=== PATIENT | female | born 1975 | race Caucasian/White ===

== ENCOUNTER 2019-01-13 22:14 | Emergency (ER) | payer BC ==
[2019-01-13] MEDS ORDERED: MECLIZINE HCL 12.5 MG TAB PO ONE (23:06)
[2019-01-13] MEDS ORDERED: AMOXICILLIN TRIHYDRATE 875 MG TAB PO ONE (23:06)
[2019-01-13] MEDS ORDERED: HYDROcodone 5MG/APAP 325MG 1 EA TAB PO ONE (23:07)
--- NOTE | 2019-01-13 23:11 | ED.PDOC ---
History of Present Illness - General Chief Complaint: ENT Problem Time Seen by Provider: 01/13/19 23:06 Source: patient - History of Present Illness Initial Comments: Pt dove into hopper and felt a pop in R ear and was immediately dizzy. Has muffled hearing and vague pain on R. denies bleeding from ear Timing/Duration: abrupt Severity: severe EENT Location: ear (R) Prearrival Treatment: no prearrival treatment Improving Factors: nothing Worsening Factors: nothing Associated Symptoms: change in hearing Home Medications: Ambulatory Orders Amoxicillin 875 mg PO BID #10 tab 01/13/19 Meclizine HCl [Meclizine 25] 25 mg PO TID PRN #15 tab 01/13/19 Review of Systems - Review of Systems Constitutional: States: no symptoms reported EENTM: States: ear pain. Denies: blurred vision, nose pain, nose congestion, throat swelling Respiratory: States: no symptoms reported Cardiology: States: no symptoms reported Neurological: States: no symptoms reported Physical Exam - Physical Exam General Appearance: Alert, Anxious Eye Exam: bilateral normal, bilateral other - lateral nystagmus to L gaze Ear Exam: right ear: TM bulging - bloody effusion, erythema, bilateral ear: auricle normal, canal normal Nasal Exam: normal inspection Throat Exam: normal mouth inspection, pharynx normal, dental tenderness Departure - Departure Clinical Impression: Otic barotrauma Qualifiers: Encounter type: initial encounter Qualified Code(s): T70.0XXA - Otitic barotrauma, initial encounter Disposition: Discharge to Home or Self Care Departure Forms: ED Discharge - Pt. Copy, Patient Portal Self Enrollment Instructions: DI for Ear Pain-Adult Prescriptions: Amoxicillin 875 mg PO BID #10 tab Meclizine HCl [Meclizine 25] 25 mg PO TID PRN #15 tab PRN Reason: Dizziness Home Medications: Ambulatory Orders Amoxicillin 875 mg PO BID #10 tab 01/13/19 Meclizine HCl [Meclizine 25] 25 mg PO TID PRN #15 tab 01/13/19
[2019-01-13 23:25] VITALS: BP 149/97; TEMP 98.1; O2SAT 100
== END 2019-01-13 23:25 | disposition home or self-care (01) ==
LOC: ER 22:14
DX: T70.0XXA Otitic barotrauma, initial encounter (principal); X58.XXXA Exposure to other specified factors, initial encounter; Y92.828 Other wilderness area as the place of occurrence of the external cause